=== PATIENT | male | born 1995 | race Caucasian/White ===

== ENCOUNTER → 2020-07-10 10:53 | Outpatient (CLI) | payer OTHER, MEDICAID, SELFPAY | PROVIDERS: PCP Family Medicine; Referring Provider Family Medicine; Visit Provider Family Medicine | DX: D68.51 Activated protein C resistance (principal) | CPT/HCPCS: 36415; 81241 ==

== ENCOUNTER 2023-06-20 20:15 | Emergency (ER) | payer BC, SELFPAY ==
[2023-06-20 20:33] VITALS: BP 145/75; PULSE 57; RESP 16; TEMP 37.3; O2SAT 95; BMI 28.7
[2023-06-20 22:04] LABS: Bacteria Urine None Seen; Culture Indicated Urine Cult Not Indicated; Ictotest Urine Negative (Negative); Mucus Urine 1+ (Negative); RBC Urine 0-1/HPF (0-5/HPF); Squamous Epithelial Cell Urine None Seen (0-5/HPF); WBC Urine 0-1/HPF (0-5/HPF)
[2023-06-20 22:13] LABS: COVID19 -Nasal RAPID Negative (Negative)
[2023-06-20 22:55] VITALS: BP 113/72; PULSE 91; RESP 18; TEMP 36.9; O2SAT 97
--- NOTE | 2023-06-20 23:07 | ED.GENADULT ---
HPI - General Adult General Chief complaint: Fever Stated complaint: fever, diarrhea, back pain Time Seen by Provider: 06/20/23 20:22 Source: patient Mode of arrival: Ambulatory History of Present Illness HPI narrative: 28-year-old male nonsmoker without significant medical history presents with his significant other and a chief complaint of diarrhea, some body aches and low-grade fever for the past few days. He denies any recent antibiotics, exposure to bad food or ill persons but they did just travel to see some friends down in [place] but have not heard that anyone else is sick. He states it over the course of the weekend he had anywhere between 4 and 10 episodes of loose stool per day without any blood. He states he has crampy abdominal pain that seems to build until he has a bowel movement at which point it seems to help. He is felt generally unwell and laid around much of the weekend. He states that he has spasm type back pain that seems to come and go as well. Denies any trauma or injury. He denies headache, runny nose, sore throat, cough or shortness of breath. He denies any numbness, tingling or weakness of his lower extremities. Denies any loss of control of bowel or bladder. Related Data Previous Rx's Medication Instructions Recorded valacyclovir 1 gram tablet 1,000 mg PO QDAY #30 tabs 10/13/22 valacyclovir 1 gram tablet 1,000 mg PO DAILY #30 tabs 06/21/23 Allergies Allergy/AdvReac Type Severity Reaction Status Date / Time No Known Allergies Allergy Uncoded 07/10/20 10:21 Review of Systems Review of Systems Narrative: GENERAL: See HPI HEENT: Denies sinus pain, ear pain, sore throat, difficulty swallowing, dizziness. RESPIRATORY: Denies dyspnea, cough, wheezing, hemoptysis, sputum. CARDIOVASCULAR: Denies chest pain, palpitations, orthopnea, edema, GASTROINTESTINAL: See HPI : Denies dysuria, frequency, incontinence, hematuria, urinary retention. MUSCULOSKELETAL: See HPI SKIN: Denies rash, skin lesions, or other NEUROLOGIC: Denies weakness, headache, numbness, change in speech, confusion, seizures, incoordination. PSYCHIATRIC: No concerning psychosocial issues. 12 point review of systems is negative except for those stated above Patient History Medical History (Updated 06/21/23 @ 03:03 by Brian Alonzo DO) Herpes genitalis in men Left hip pain Family History (Updated 07/13/20 @ 21:06 by Ashley Murillo) Brother Age: 33 Thyroid condition Factor 5 Leiden mutation, heterozygous Father Age: 58 Hypertension Factor 5 Leiden mutation, heterozygous Mother Age: 55 Mental health problem Grandmother Age: 82 Hypertension High cholesterol Factor 5 Leiden mutation, heterozygous Social History marital status: unmarried,single pets and animals: Yes education level: high school Smoking Status: Never smoker second hand exposure: No alcohol intake: current (5 drinks/week) substance use type: does not use Smoking Status: Never smoker alcohol intake frequency: a few times a week Substance Use Type: does not use Exam Narrative Exam Narrative: GENERAL: [28] year old patient appears stated age. Well-developed patient, in mild distress. HEAD: Atraumatic. Normocephalic. EYES: Pupils equal round and reactive. Extraocular motions intact. No scleral icterus. No injection or drainage. ENT: Moist mucous membranes Nose without bleeding, purulent drainage. Throat without erythema, tonsillar hypertrophy or exudate. Airway patent. NECK: Trachea midline. Non tender CARDIOVASCULAR: Regular rate and rhythm without murmurs, gallops, or rubs. RESPIRATORY: Clear to auscultation. Breath sounds equal bilaterally. No wheezes, rales, or rhonchi. GASTROINTESTINAL: Abdomen soft, non-tender, nondistended. Bowel sounds increased EXTREMITIES: No edema or joint tenderness. BACK: paper cone machine tender but free of any obvious external abnormalities. Patient exam notes decreased range of motion and muscle spasm, but no CVA tenderness, or vertebral point tenderness. There are no symptoms of cauda equina such as saddle anesthesia, and decreased reflexes, decreased sensation or strength. NEURO: AOx3. SKIN: No rash or erythema of visible areas Initial Vital Signs Initial Vital Signs: Vital Signs Temperature 99.2 F 06/20/23 20:33 Pulse Rate 57 L 06/20/23 20:33 Respiratory Rate 16 06/20/23 20:33 Blood Pressure 145/75 H 06/20/23 20:33 Pulse Oximetry 95 06/20/23 20:33 Oxygen Delivery Method Room Air 06/20/23 20:33 Course Orders Ordered: ED Orders 06/20/23 21:34 Ictotest Urine Stat Urine Microscopic Stat 06/20/23 21:58 COVID19 -Nasal RAPID Stat Vital Signs Vital signs: Vital Signs - 8 hr 06/20/23 20:33 06/20/23 22:55 Temperature 99.2 F 98.4 F Pulse Rate 57 L 91 H Respiratory Rate 16 18 Blood Pressure 145/75 H 113/72 Pulse Oximetry 95 97 Oxygen Delivery Method Room Air Room Air Medical Decision Making Lab Data Labs: Lab Results 06/20/23 06/20/23 06/21/23 Range/Units 21:34 21:58 03:05 Ur Bilirubin Confirm Negative (Negative) Urine RBC 0-1/hpf (0-5/HPF) Urine WBC 0-1/hpf (0-5/HPF) Ur Squamous Epith Cells None seen (0-5/HPF) Urine Bacteria None seen (None) Urine Mucus 1+ H (Negative) Ur Culture Indicated? Cult not indicated Chlamy pneumoniae PCR Not detected (Not Detect) Adenovirus (PCR) Not detected (Not Detect) B. pertussis DNA (PCR) Not detected (Not Detecte) B.parapertussis DNA PCR Not detected (Not Detecte) Coronavirus OC43 (PCR) Not detected (Not Detect) Coronavirus HKU1 (PCR) Not detected (Not Detect) Coronavirus 229E (PCR) Not detected (Not Detect) SARS-CoV-2 (PCR) Negative Not detected (Negative) Coronavirus NL63 (PCR) Not detected (Not Detect) Human Metapneumovir PCR Not detected (Not Detect) Influenza Type A (PCR) Not detected (Not Detect) Influenza Type B (PCR) Not detected (Not Detect) M. pneumoniae (PCR) Not detected (Not Detect) Parainfluenza 1 (PCR) Not detected (Not Detect) Parainfluenza 2 (PCR) Not detected (Not Detect) Parainfluenza 3 (PCR) Not detected (Not Detect) Parainfluenza 4 (PCR) Not detected (Not Detect) RSV (PCR) Not detected (Not Detect) Entero/Rhino (PCR) Not detected (Not Detect) Urine Dip Bedside Urine Glucose Negative Bedside Urine Bilirubin ++ 2 Bedside Urine Ketone +/- 5 Urine Specific [place] 1.025 Bedside Urine Occult Blood - Negative Bedside Urine pH 6.0 Bedside Urine Protein + 30 Bedside Urine Urobilinogen +/- 1mg Bedside Urine Nitrite - Negative Bedside Urine Leukocytes - Negative Esterase Point of care testing: Urine Dip Bedside Urine Glucose Negative Bedside Urine Bilirubin ++ 2 Bedside Urine Ketone +/- 5 Urine Specific [place] 1.025 Bedside Urine Occult Blood - Negative Bedside Urine pH 6.0 Bedside Urine Protein + 30 Bedside Urine Urobilinogen +/- 1mg Bedside Urine Nitrite - Negative Bedside Urine Leukocytes - Negative Esterase MDM Narrative Medical decision making narrative: [28] year old patient presents with crampy abdominal pain, frequent diarrhea low-grade fever Multiple etiologies for patient's symptoms considered including, but not limited to: [Infectious diarrhea versus COVID versus flu versus other, spinal epidural abscess considered but thought extremely unlikely Prior Charts reviewed in our EMR Primary Historian: patient Labs reviewed and interpreted by myself: GI panel without acute findings, respiratory panel without findings Patient's history and physical exam are reassuring and viral etiology or infectious diarrhea considered the most likely source. No obvious indication for specific treatment or antibiotics based on GI panel. Patient tolerating orals. Hemodynamically stable. He is largely asymptomatic and denies any dizziness, weakness or lightheadedness. He does have episodes of spasm in his back and this in the setting of fever epidural abscess of course must be considered but is thought unlikely given lack of persistent midline pain Patient's symptoms improved over duration of stay with above-stated therapies. Findings and discharge diagnosis discussed with patient/family followed by verbalization of understanding Return precautions discussed with patient/family whom verbalize understanding of diagnosis and plan Discharge Plan Departure Patient Disposition: Home Clinical Impression: Diarrhea, Fever Instructions: Diarrhea, DI for Fever (Symptom) -- Adult Activity Restrictions/Additional Instructions: *You have been diagnosed with [fever, body aches and diarrhea. As we discussed this is most likely of a viral cause and hopefully the stool sample help establish a diagnosis.] *What to do: *Please continue to take your regular medications as directed. [ x] New medication prescriptions sent to your pharmacy: [ [facility]] [ ] New medication written as a paper prescription [ ] No new medications given *Please follow up with your primary care provider in 2-3 days, call for an appointment. Let them know you were seen in the Emergency Department and that we ask that you be seen in follow up. We will electronically transmit a record of today's note if your PCP is in our system *Return to Emergency Department if you should have any new, worsening or concerning symptoms Prescriptions: New valacyclovir 1 gram tablet 1,000 mg PO DAILY Qty: 30 0RF No Action valacyclovir 1 gram tablet 1,000 mg PO QDAY Qty: 30 0RF Referrals: Allen Hernandez MD [Primary Care Provider] - Stand Alone Forms: Patient Portal/API
[2023-06-21 03:13] VITALS: BP 134/72; PULSE 68; RESP 16; TEMP 36.3; O2SAT 97
[2023-06-21 04:24] LABS: Adenovirus Not Detected (Not Detect); B. parapertussis Not Detected (Not Detecte); Bordetella pertussis Not Detected (Not Detecte); Chlamydophila pneumoniae Not Detected (Not Detect); Coronavirus 229E Not Detected (Not Detect); Coronavirus HKU1 Not Detected (Not Detect); Coronavirus NL 63 Not Detected (Not Detect); Coronavirus OC43 Not Detected (Not Detect); Human Metapneumovirus Not Detected (Not Detect); Human Rhinovirus/Enterovirus Not Detected (Not Detect); Influenza A Not Detected (Not Detect); Influenza B Not Detected (Not Detect); Mycoplasma pneumoniae Not Detected (Not Detect); Parainfluenza Virus 1 Not Detected (Not Detect); Parainfluenza Virus 2 Not Detected (Not Detect); Parainfluenza Virus 3 Not Detected (Not Detect); Parainfluenza Virus 4 Not Detected (Not Detect); Respiratory Syncytial Virus Not Detected (Not Detect); SARS- CoV-2 Not Detected (Not Detecte)
== END 2023-06-21 03:15 | disposition home or self-care (01) ==
PROVIDERS: Emergency Provider Emergency Medicine; PCP Family Medicine
DX: R19.7 Diarrhea, unspecified (principal); R50.9 Fever, unspecified; Z20.822 Contact with and (suspected) exposure to COVID-19
CPT/HCPCS: 81003; 81015; 87633; 87635; 99282; C9803

== ENCOUNTER → 2023-06-21 09:53 | Outpatient (CLI) | payer BC, SELFPAY ==
[2023-06-21 13:54] LABS: Adenovirus F 40/41 Not Detected (Not Detect); Astrovirus Not Detected (Not Detect); Campylobacter Not Detected (Not Detect); Clostridium difficile toxin AB Not Detected (Not Detect); Cryptosporidium Not Detected (Not Detect); Cyclospora cayetanensis Not Detected (Not Detect); Entamoeba histolytica Not Detected (Not Detect); Enteroaggregative E.coli Not Detected (Not Detect); Enteropathogenic E.coli Not Detected (Not Detect); Enterotoxigenic E.coli It/st Not Detected (Not Detect); Giardia lamblia Not Detected (Not Detect); Norovirus GI/GII Not Detected (Not Detect); Plesiomonsa shigelloides Not Detected (Not Detect); Rotavirus A Not Detected (Not Detect); Salmonella Not Detected (Not Detect); Sapovirus Not Detected (Not Detect); Shiga-like toxin-prod E.coli Not Detected (Not Detect); Shigella/Enteroinvasive E.coli Not Detected (Not Detect); Vibrio Not Detected (Not Detect); Vibrio cholerae Not Detected (Not Detect); Yersinia enterocolitica Not Detected (Not Detect)
== END ==
PROVIDERS: PCP Family Medicine; Referring Provider Emergency Medicine; Visit Provider Emergency Medicine
DX: B99.9 Unspecified infectious disease (principal)
CPT/HCPCS: 87507

== ENCOUNTER → 2023-06-22 08:39 | Outpatient (CLI) | payer BC, SELFPAY ==
[2023-06-22 10:42] LABS: Blood Urea Nitrogen 17 mg/dL (9-20); Calcium 9.5 mg/dL (8.4-10.2); Carbon Dioxide 24 mmol/L (22-32); Chloride 101 mmol/L (98-107); Estimated Glomerular Filt Rate > 60 mL/min (>60); Glucose 99 mg/dL (70-100); HEMOLYSIS < 15 (0-50); Potassium 4.3 mmol/L (3.4-5.1); Sodium 136 mmol/L (137-145)
[2023-06-22 10:45] LABS: Add Manual Diff / Slide Review NO; Basophils Absolute Auto 0 /uL (0-100); Basophils Percent Auto 0.7 % (0-2); Eosinophils Absolute Auto 100 /uL (0-450); Eosinophils Percent Auto 1.5 % (2-4); Hematocrit 43.6 % (41-53); Hemoglobin 15.6 g/dL (13.5-17.5); Lymphocytes Absolute Auto 1200 /uL (1100-4500); Lymphocytes Percent Auto 26.4 % (25-40); Mean Corpuscular HGB Conc 35.8 % (30-36); Mean Corpuscular Hemoglobin 32.8 PG (26-34); Mean Corpuscular Volume 91.7 fL (80-100); Monocytes Absolute Auto 1000 /uL (0-900); Monocytes Percent Auto 20.8 % (3-14); Neutrophils Absolute Auto 2300 /uL (1500-7000); Neutrophils Percent Auto 50.6 % (50-75); Platelet Count 184 X10^3/uL (150-400); Red Blood Cell Count 4.76 X10^6/uL (4.5-5.9); Red Cell Distribution Width 11.9 % (11.6-14.8); White Blood Cell Count 4.6 X10^3/uL (4.5-11.0)
== END ==
PROVIDERS: PCP Family Medicine; Referring Provider Physician Assistant; Visit Provider Physician Assistant
DX: R19.7 Diarrhea, unspecified (principal)
CPT/HCPCS: 36415; 80048; 85025

== ENCOUNTER → 2024-11-11 17:41 | Outpatient (CLI) | payer OTHER, SELFPAY | PROVIDERS: PCP Family Medicine; Visit Provider Registered Nurse | DX: R07.0 Pain in throat (principal) | CPT/HCPCS: 87070; 87077; 87147 ==

== ENCOUNTER → 2025-01-08 14:50 | Outpatient (CLI) | payer OTHER, SELFPAY | PROVIDERS: PCP Family Medicine; Visit Provider Nurse Practitioner Family | DX: R49.0 Dysphonia (principal) | CPT/HCPCS: 87070 ==